=== PATIENT | male | born 1995 | race Caucasian/White ===

== ENCOUNTER 2023-09-02 01:46 | Emergency (ER) | payer MEDICAID ==
[~2023-09-02] VITALS: Ht 177.8 cm; Wt 80.0 kg
[2023-09-02] MEDS ORDERED: ONDANSETRON HCL 4MG/2ML INJ IV STA (02:07)
[2023-09-02] MEDS ORDERED: MORPHINE SULFATE 4 MG/ML CPJ (NOT FOR IM USE) IV STA (02:07)
[2023-09-02] MEDS ORDERED: SODIUM CHLORIDE 0.9% 1,000 ML IV ONE (02:15)
[2023-09-02] MEDS ORDERED: IOHEXOL-350 100 ML BOTTLE ONE (03:00)
[2023-09-02 03:30] LABS: ALANINE AMINOTRANSFERASE 14 IU/L (10-49); ALBUMIN 5.1 g/dL (3.2-4.8); ASPARTATE AMINOTRANSFERASE 18 IU/L (<34); BILIRUBIN TOTAL 0.5 mg/dL (0.1-1.0); CALCIUM 10.4 mg/dL (8.7-10.4); CARBON DIOXIDE 28 mEq/L (21-32); CHLORIDE 101 mEq/L (98-107); GLUCOSE 98 mg/dL (70-105); POTASSIUM 3.4 mEq/L (3.5-5.1); PROTEIN TOTAL 7.2 g/dL (6.0-8.3); SODIUM 138 mEq/L (136-145); UREA NITROGEN BLOOD 8 mg/dL (9-23)
[2023-09-02] MEDS ORDERED: IBUPROFEN 600MG TABLET PO ONE (04:30)
[2023-09-02] MEDS ORDERED: IBUP-2029 MT (05:28)
[2023-09-02] MEDS ORDERED: METH-653 MT (05:28)
[2023-09-02] MEDS ORDERED: IBUPROFEN 600MG TABLET PO NR (07:03)
[2023-09-02] MEDS ORDERED: SODIUM CHLORIDE 0.9% 1000ML BAG (SEPSIS BOLUS) IV ONE (07:30)
[2023-09-02] MEDS ORDERED: MORPHINE SULFATE 4 MG/ML CPJ (NOT FOR IM USE) IV ONE (07:30)
[2023-09-02 09:02] LABS: HEMATOCRIT. 38.7 % (42.0-52.0); HEMOGLOBIN. 12.7 g/dL (14.0-18.0); MEAN CORPUSCULAR HEMOGLOBIN 29.7 pg (28.0-32.0); MEAN CORPUSCULAR HGB CONC 32.9 g/dL (31.0-37.0); MEAN CORPUSCULAR VOLUME 90.2 fL (80.0-94.0); MEAN PLATELET VOLUME 7.9 fl (7.4-10.4); PLATELET 230 x1000/uL (130-400); RED BLOOD CELL COUNT 4.29 mill/uL (4.7-6.1); WHITE BLOOD COUNT 7.5 x1000/uL (4.5-11.0)
[2023-09-02 09:14] LABS: DIFFERENTIAL COMMENT 1
[2023-09-02] MEDS ORDERED: METHYLPREDNISOLONE SOD SUCC 40MG/ML (ACT-O-VIAL) IV NR (09:15)
[2023-09-02] MEDS: IPRATROPIUM/ALBUTEROL 0.5-3(2.5)MG/3ML NEB HHN NR ×2 (09:30→11:23)
[2023-09-02 09:44] LABS: ALANINE AMINOTRANSFERASE 12 IU/L (10-49); ALBUMIN 4.3 g/dL (3.2-4.8); ASPARTATE AMINOTRANSFERASE 16 IU/L (<34); BILIRUBIN TOTAL 0.5 mg/dL (0.1-1.0); CALCIUM 8.9 mg/dL (8.7-10.4); CARBON DIOXIDE 26 mEq/L (21-32); CHLORIDE 106 mEq/L (98-107); CREATININE 0.8 mg/dL (0.6-1.3); GLUCOSE 103 mg/dL (70-105); POTASSIUM 3.9 mEq/L (3.5-5.1); PROTEIN TOTAL 5.9 g/dL (6.0-8.3); SODIUM 139 mEq/L (136-145); UREA NITROGEN BLOOD 7 mg/dL (9-23)
[2023-09-02 10:05] LABS: CLARITY URINE CLEAR (CLEAR); COLOR URINE YELLOW (YELLOW); GLUCOSE URINE NEGATIVE (NEGATIVE); KETONES URINE NEGATIVE (NEGATIVE); LEUKOCYTE ESTERASE URINE NEGATIVE (NEGATIVE); NITRITE URINE NEGATIVE (NEGATIVE); OCCULT BLOOD URINE NEGATIVE (NEGATIVE); PH URINE 5.5 (4.5-8.0); PROTEIN URINE NEGATIVE (NEGATIVE); UROBILINOGEN URINE 0.2 E.U./dL (0.2-1.0)
[2023-09-02 10:25] LABS: PLATELET ESTIMATE NORMAL
[2023-09-02 10:53] LABS: *AMPHETAMINES SCREEN URINE PRESUMPTIVE POSITIVE (NEGATIVE); *BARBITURATES SCREEN URINE NEGATIVE (NEGATIVE); *BENZODIAZEPINES SCREEN URINE NEGATIVE (NEGATIVE); *COCAINE SCREEN URINE PRESUMPTIVE POSITIVE (NEGATIVE); CANNABINOID URINE SCREEN NEGATIVE (NEGATIVE); ECSTASY MDMA SCREEN URINE CONF.TEST INDICATED (NEGATIVE); METHADONE URINE SCREEN Neg (NEGATIVE); OPIATES URINE SCREEN PRESUMPTIVE POSITIVE (NEGATIVE); PHENCYCLIDINE URINE SCREEN NEGATIVE (NEGATIVE)
[2023-09-02 11:58] VITALS: PULSE 124; RESP 32; O2SAT 99
[2023-09-02 11:59] VITALS: BP 101/52; PULSE 98; RESP 20; TEMP 98.4
[2023-09-02] MEDS ORDERED: DOCUSATE SODIUM 100MG CAPSULE PO PRN (12:15)
[2023-09-02] MEDS ORDERED: NALOXONE HCL 0.4MG/ML VIAL IV PRN (12:15)
[2023-09-02] MEDS ORDERED: CLONIDINE 0.1MG TABLET PO PRN (12:15)
[2023-09-02] MEDS ORDERED: TRAMADOL 50MG TABLET PO PRN (12:15)
[2023-09-02] MEDS ORDERED: IPRATROPIUM/ALBUTEROL 0.5-3(2.5)MG/3ML NEB HHN PRN (12:15)
[2023-09-02] MEDS ORDERED: GUAIFENESIN 200MG/10ML SUGAR FREE UDC PO PRN (12:15)
[2023-09-02] MEDS ORDERED: METHYLPREDNISOLONE SOD SUCC 125MG/2ML (ACT-O-VIAL) IV SCH (12:15)
[2023-09-02] MEDS ORDERED: ACETAMINOPHEN 325MG TABLET PO PRN (12:15)
[2023-09-02] MEDS ORDERED: HYDROCODONE/ACETAMINOPHEN 5/325MG TABLET PO PRN (12:15)
[2023-09-02] MEDS ORDERED: IPRATROPIUM/ALBUTEROL 0.5-3(2.5)MG/3ML NEB HHN SCH (12:15)
[2023-09-02] MEDS ORDERED: HYDROCODONE/ACETAMINOPHEN 7.5/325MG TABLET PO PRN (12:15)
[2023-09-02] MEDS ORDERED: ONDANSETRON HCL 4MG/2ML INJ IV PRN (12:15)
== END 2023-09-02 12:35 | disposition left against medical advice (07) ==
LOC: ER 01:46 → EDBEDREQSVC 08:31 → EDBEDREQ 08:31 → EDBEDREQTM 08:31 → ER 12:35 → CANBEDREQ 12:44
DX: M54.9 Dorsalgia, unspecified (principal); J45.909 Unspecified asthma, uncomplicated; M79.605 Pain in left leg; M79.604 Pain in right leg; Z20.822 Contact with and (suspected) exposure to COVID-19; V98.8XXA Other specified transport accidents, initial encounter; Y93.89 Activity, other specified; Y92.89 Other specified places as the place of occurrence of the external cause; Y99.8 Other external cause status
CPT/HCPCS: 80053; 80305; 81003; 83605; 85025; 86850; 86900; 86901; 87040; 87086; 36415; 84145; 71045; 70450; 71260; 72125; 74177; 94640; 93005; 96361; 96374; 96375; 96376; 99285; 87426; Q9967; J2920; J2405; J2270; Z7610 ×4; J7030; C9803